=== PATIENT | male | born 1990 | race Caucasian/White ===

== ENCOUNTER 2019-09-18 18:20 | Emergency (ER) | payer OTHER ==
[~2019-09-18] VITALS: Ht 177.8 cm; Wt 64.9 kg
== END 2019-09-18 20:11 | disposition home or self-care (01) ==
LOC: ER 18:20
DX: S61.011A Laceration without foreign body of right thumb without damage to nail, initial encounter (principal); W54.0XXA Bitten by dog, initial encounter; Y93.89 Activity, other specified; Y92.89 Other specified places as the place of occurrence of the external cause; Y99.8 Other external cause status